=== PATIENT | male | born 1980 | race Caucasian/White ===

== ENCOUNTER 2017-03-15 18:49 | Emergency (ER) | payer MEDICAID ==
[~2017-03-15] VITALS: Ht 175.3 cm; Wt 70.9 kg
[2017-03-15 18:55] VITALS: BP 121/71
== END 2017-03-15 21:15 | disposition home or self-care (01) ==
LOC: ED 21:09
DX: S50.311A Abrasion of right elbow, initial encounter (principal); M70.21 Olecranon bursitis, right elbow; X58.XXXA Exposure to other specified factors, initial encounter; Y93.89 Activity, other specified; Y92.89 Other specified places as the place of occurrence of the external cause; Y99.8 Other external cause status
CPT/HCPCS: 99284

== ENCOUNTER 2017-04-09 12:48 | Emergency (ER) | payer MEDICAID ==
[~2017-04-09] VITALS: Ht 175.3 cm; Wt 70.7 kg
[2017-04-09 13:02] VITALS: BP 114/66
== END 2017-04-09 13:53 | disposition home or self-care (01) ==
LOC: ED 13:41
DX: L03.211 Cellulitis of face (principal); Z48.02 Encounter for removal of sutures
CPT/HCPCS: 99283

== ENCOUNTER 2017-10-24 04:05 | Emergency (ER) | payer MEDICAID ==
[~2017-10-24] VITALS: Ht 175.3 cm; Wt 80.8 kg
[2017-10-24 04:07] VITALS: BP 158/93
[2017-10-24] MEDS ORDERED: BUSP5TAB2 PO (04:12)
[2017-10-24] MEDS ORDERED: BUPR150T73 PO (04:12)
== END 2017-10-24 04:37 | disposition left against medical advice (07) ==
LOC: ED 04:31
DX: J34.89 Other specified disorders of nose and nasal sinuses (principal); Z53.21 Procedure and treatment not carried out due to patient leaving prior to being seen by health care provider